=== PATIENT | female | born 1990 | race Caucasian/White ===

== ENCOUNTER 2018-11-01 07:54 | Emergency (ER) | payer OTHER ==
[~2018-11-01] VITALS: Ht 165.1 cm; Wt 78.0 kg
[2018-11-01 07:55] VITALS: BP 125/86
--- NOTE | 2018-11-01 08:11 | NUR ---
bib self with c/o 6/10 left flank and vagina pain with urgency x this am. Patient denies TRAUMA OR N/V/D or burning when voiding. LAST BM X THIS AM. ABD SOFT .SKIN IS PINK/WARM/DRY; PATIENT STATES PAIN OF 6/10 AT THIS TIME. PATIENT POSITIONED FOR COMFORT; HOB ELEVATED; BEDRAILS UP X2; BED DOWN. ER MD MADE AWARE OF PT STATUS.
[2018-11-01] MEDS ORDERED: NACL 0.9% 1,000 ML IV SCH (08:25)
[2018-11-01] MEDS ORDERED: ONDANSETRON 4 MG/2 ML VIAL IVP ONE (08:25)
--- NOTE | 2018-11-01 08:31 | NUR ---
PATIENT TAKEN FOR CT SCAN VIA [facility] AT THIS TIME.
[2018-11-01] MEDS: KETOROLAC 30 MG/ML VIAL IVP ONE ×2 (08:44→08:46)
[2018-11-01 08:50] LABS: BASOPHILS % (AUTO) 0.7 % (0.0-2.0); EOSINOPHILS # (AUTO) 0.1 K/uL (0-0.4); EOSINOPHILS % (AUTO) 1.7 % (0.0-4.0); HEMATOCRIT 41.1 % (36-48); HEMOGLOBIN 13.4 g/dL (12.0-16.0); LYMPHOCYTES # (AUTO) 1.5 K/uL (2.5-16.5); LYMPHOCYTES % (AUTO) 22.3 % (20.5-51.1); MEAN CORPUSCULAR HEMOGLOBIN 27 pg (27-31); MEAN CORPUSCULAR HGB CONC 33 g/dL (33-37); MONOCYTES # (AUTO) 0.4 K/uL (0.8-1.0); MONOCYTES % (AUTO) 6.6 % (1.7-9.3); NEUTROPHILS # (AUTO) 4.5 K/uL (1.8-7.7); NEUTROPHILS % (AUTO) 68.7 % (42.2-75.2); PLATELET COUNT (AUTO) 274 K/uL (140-450); RED BLOOD CELL COUNT(AUTO) 5.02 MIL/uL (4.20-5.40); RED CELL DISTRIBUTION WIDTH 13.6 % (11.6-13.7); WHITE BLOOD COUNT (AUTO) 6.6 K/uL (4.8-10.8)
[2018-11-01 09:02] LABS: APPEARANCE,URINE CLEAR (CLEAR); BILIRUBIN,URINE NEGATIVE (NEGATIVE); BLOOD, URINE 3+ (NEGATIVE); COLOR,URINE YELLOW (YELLOW); LEUKOCYTE ESTERASE ,URINE TRACE (NEGATIVE); NITRITE, URINE NEGATIVE (NEGATIVE); PH,URINE 5.5 (5.0-9.0); UGLUCOSE NEGATIVE (NEGATIVE)
[2018-11-01 09:02] LABS: ALBUMIN 3.7 g/dL (3.4-5.0); ANION GAP 13.2 (8-16); CARBON DIOXIDE 24.7 mmol/L (21-32); CREATININE 0.8 mg/dL (0.6-1.3); POTASSIUM 3.9 mmol/L (3.5-5.1); TOTAL BILIRUBIN 0.4 mg/dL (0.0-1.0)
[2018-11-01 09:06] LABS: RBC,URINE 20-50 /HPF (0-5)
[2018-11-01 09:07] LABS: WBC,URINE 6-15 (FEW) /HPF (0-5)
--- NOTE | 2018-11-01 09:42 | NUR ---
Patient being reevaluated by DR SANTOS at bedside.
--- NOTE | 2018-11-01 10:07 | NUR ---
Patient discharged with v/s stable. Written and verbal after care instructions given and explained. Patient alert, oriented and verbalized understanding of instructions. Ambulatory with steady gait. All questions addressed prior to discharge. ID band removed. Patient advised to follow up with PMD. Rx of CIPRO, NORCO&MOTRIN given. Patient educated on indication of medication including possible reaction and side effects. Opportunity to ask questions provided and answered.
[2018-11-01 10:17] VITALS: BP 118/80
== END 2018-11-01 10:07 | disposition home or self-care (01) ==
LOC: MED 07:54
DX: N20.0 Calculus of kidney (principal)
CPT/HCPCS: 36415; 74176; 80053; 81001; 81025; 83690; 85025; 87086; 96374; 96375; 99284; J1885; J2405; J7030

== ENCOUNTER 2020-04-29 22:27 | Emergency (ER) | payer OTHER ==
[~2020-04-29] VITALS: Ht 162.6 cm; Wt 100.7 kg
[2020-04-29 22:35] VITALS: BP 144/58
--- NOTE | 2020-04-29 22:47 | NUR ---
PT AMBULATED TO BED #7 W/ STEADY GAIT.
--- NOTE | 2020-04-29 23:10 | NUR ---
PT TAKEN TO CT
--- NOTE | 2020-04-29 23:13 | NUR ---
PT TAKEN TO CT
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
[2020-04-30 00:14] VITALS: BP 144/58
--- NOTE | 2020-04-30 00:15 | NUR ---
Patient discharged with v/s stable. Written and verbal after care instructions given and explained. Patient alert, oriented and verbalized understanding of instructions. Ambulatory with steady gait. All questions addressed prior to discharge. ID band removed. Patient advised to follow up with PMD. Rx of IBUPROFEN, FLEXERIL given. Patient educated on indication of medication including possible reaction and side effects. Opportunity to ask questions provided and answered.
== END 2020-04-30 00:15 | disposition home or self-care (01) ==
LOC: MED 22:27
DX: M54.2 Cervicalgia (principal); R55 Syncope and collapse; V27.5XXA Motorcycle passenger injured in collision with fixed or stationary object in traffic accident, initial encounter; Y93.89 Activity, other specified; Y92.410 Unspecified street and highway as the place of occurrence of the external cause; Y99.8 Other external cause status
CPT/HCPCS: 70450; 72125; 81002; 81025; 99285